=== PATIENT | female | born 1990 | race African-American/Black ===

== ENCOUNTER → 2017-01-12 | Outpatient (CLI) | payer OTHER ==
[2017-01-12 18:08] LABS: PREG INTERNAL NEGATIVE QC NEG CLEAR BACKGROUND; PREG INTERNAL POSITIVE QC POS CONTROL LINE
[2017-01-12 18:14] LABS: PROLACTIN 4.51 ng/mL
[2017-01-12 18:16] LABS: CALCULATED INSULIN SENSITIVITY 0.335; GLUCOSE LOG 1.9085; THYROID STIMULATING HORMONE 0.366 uIu/ml (0.300-4.500)
== END | disposition home or self-care (01) ==
LOC: C.LAB1850 16:08
PROVIDERS: ATTEND Physician Assistant
DX: N92.6 Irregular menstruation, unspecified (principal)

== ENCOUNTER 2017-03-10 00:41 | Emergency (ER) | payer OTHER ==
[~2017-03-10] VITALS: Ht 167.6 cm; Wt 71.8 kg
[2017-03-10 00:46] VITALS: Ht 167.6 cm; Wt 71.8 kg
[2017-03-10] MEDS ORDERED: KETOROLAC TROMETHAMINE 60 MG/2 ML VIAL IM STA (01:18)
--- NOTE | 2017-03-10 01:22 | EMERGENCY ROOM VISIT NOTE ---
History Report prepared by Esdras: Giovani Mcnair Under the Supervision of: Dr. Rachel Max D.O. First contact with patient: 01:01 Chief Complaint: DENTAL PAIN Stated Complaint: SEVERE DENTAL PAIN Nursing Triage Summary: dental pain R lower History of Present Illness The patient is a 26 year old female who presents to the Emergency Room with complaints of right sided upper dental pain that began 2 months ago. She rates her pain a 10/10 in severity. She states that she has an exposed nerve in her mouth with a Dentist appointment on the . However, the patient has not been able to sleep or eat regularly secondary to her pain. She notes that she has lost 10 pounds. She is currently on her second course of Augmentin that was prescribed by Urgent Care and [facility]. She was also given Lortab for the pain, but states that it only helps he sleep occasionally. She denies any current medical problems. She denies any fevers. Source of History: patient Onset: 2 months ago Position: teeth (upper right side) Symptom Intensity: 10/10 Quality: sharp Timing: constant Associated Symptoms: No fevers Note: She is unable to eat or sleep regularly secondary to her pain. She notes that she has lost 10 pounds. Review of Systems See HPI for pertinent positives & negatives. A total of 10 systems reviewed and were otherwise negative. Past Medical & Surgical Medical Problems: (1) No Known Active Medical Problems Family History Patient reports no known family medical history. Social History Smoking Status: Current Every Day Smoker Smokeless Tobacco Use: No Drug Use: none Occupation Status: employed Physical Exam Vital Signs Date Time Temp Pulse Resp B/P (MAP) Pulse Ox O2 Delivery O2 Flow Rate FiO2 03/10/17 02:23 74 18 109/75 98 Room Air 03/10/17 02:23 36.8 74 18 109/75 98 03/10/17 00:46 36.5 66 18 178/95 99 Room Air Physical Exam HEENT: Head - normocephalic and atraumatic Pupils are equal, round, and reactive to light. Extraocular eye muscles are intact, and sclera are anicteric. Ear - TM's clear bilaterally. Nose - moist nasal mucosa without discharge. Mouth - moist buccal mucosa. Oropharynx is nonerythematous and there is no tonsillar exudate or edema noted. Tooth number 4 is fractured without surrounding erythema or edema. Neck: Supple; no cervical lymphadenopathy or submental pain Heart: No murmurs, clicks, or gallops appreciated. Lungs: Clear to auscultation bilaterally with no wheezes, rales, or rhonchi. Abdomen: Soft, completely nontender, nondistended, with good bowel sounds. There are no palpable pulsatile masses or hepatosplenomegaly. There is no guarding, rigidity, or rebound noted. Extremities: No evidence of cyanosis, clubbing, or edema. There are easily palpable peripheral pulses. Skin: warm and dry with good turgor and no rashes. Medical Decision & Procedures Medications Administered Medications (Trade) Dose Ordered Sig/Leandro Route Start Time Stop Time Status Last Admin Dose Admin Ketorolac Tromethamine (Toradol Inj) 60 mg NOW STAT IM 03/10/17 01:18 03/10/17 01:19 DC 03/10/17 01:27 60 MG Oxycodone/ Acetaminophen (Percocet 5/ 325MG Home Pack) 1 homepack UD ONCE PO 03/10/17 02:00 03/10/17 02:01 DC 03/10/17 02:00 1 HOMEPACK Procedure Toradol Inj 60 mg IM Lidocaine HCl 20 ml INFIL Bupivacaine HCl 30 ml INFIL Oxycodone/Acetaminophen 1 homepack PO Please see procedure note dictation by Adalberto Hidalgo PA-C ED Course 0101: Past medical records reviewed. The patient was evaluated in room C1. A complete history and physical exam was performed. 0118: Ordered Toradol Inj 60 mg IM 0145: Ordered Lidocaine HCl 20 ml INFIL, Bupivacaine HCl 30 ml INFIL 0150: At this time, Adalberto Hidalgo PA-C performed the patient's dental block procedure. Please see his note for more information. 0200: Ordered Oxycodone/Acetaminophen 1 homepack PO 0300: Upon reevaluation, the patient was resting. I discussed findings and results with her. She verbalized agreement of the treatment plan. She was discharged home. Medical Decision The patient is a 26 year old female who presents to the ED with dental pain. Differential diagnosis includes dentalgia and dental abscess. The patient has been on 2 consecutive courses of oral Augmentin for a dental abscess. She has had improvement in that situation but is still having severe pain surrounding the tooth. She is scheduled to see a dentist on March 19. We gave her IM analgesia as well as a dental block was performed with good relief. I've given her the name of the oral surgeon that was on-call derrell to do some follow-up as this may be quicker than going to her regular dentist. The patient was encouraged to finish the last couple of doses of Augmentin and follow-up on Sunday. She was given a Percocet home pack to use to help with her pain tonight. Medication Reconcilliation Current Medication List: was personally reviewed by me Blood Pressure Screening Patient's blood pressure: Normal blood pressure Blood pressure disposition: Did not require urgent referral Impression Primary Impression: Pain, dental Scribe Attestation The scribe's documentation has been prepared under my direction and personally reviewed by me in its entirety. I confirm that the note above accurately reflects all work, treatment, procedures, and medical decision making performed by me. Departure Information Dispostion Home / Self-Care Referrals Vinnie Graham M.D. Stein, Barry R., D.M.D. Forms HOME CARE DOCUMENTATION FORM, IMPORTANT VISIT INFORMATION Patient Instructions ED Tooth Pain, My [facility] Additional Instructions Finish antibiotics May continue to use Lortab Percocet - (tonight) 1 tab. every 4 hours for pain
[2017-03-10] MEDS ORDERED: XYLOCAINE 1%/SOD BICARB 20 ML VIAL INFIL ONE (01:45)
[2017-03-10] MEDS ORDERED: BUPIVACAINE 0.5 % 5 MG/1 ML MPF 30ML VIAL INFIL ONE (01:45)
[2017-03-10] MEDS ORDERED: PERCOCET HOME PACK PO ONE (02:00)
[2017-03-10 02:23] VITALS: BP 109/75; PULSE 74; TEMP 36.8; O2SAT 98
--- NOTE | 2017-03-10 06:39 | EMERGENCY ROOM VISIT NOTE ---
ED Visit Note Patient was seen and evaluated at the request of my attending physician, Dr. Max, for a dental block. In short, the patient has dental pain with appears to be originating from the #4 tooth. The medial aspect of this tooth is very carious and is causing pain. Dental Block Consent for operation or procedure: Risks and benefits discussed with patient and consent obtained Anesthesia: 0.5 ml of 0.5% Bupivicaine and 0.5 ml of 1% Buffered Lidocaine The distribution of the inferior alveolar nerve was identified. A 50-50 mix of bupivacaine and lidocaine was injected into that region. A short time later adequate analgesia was obtained. Estimated Blood Loss: minimal Complications: The patient tolerated the procedure well without complications. I refer you back to Dr. Max's dictation for further patient course, plan, and disposition. Vital Signs Date Time Temp Pulse Resp B/P (MAP) Pulse Ox O2 Delivery O2 Flow Rate FiO2 03/10/17 02:23 74 18 109/75 98 Room Air 03/10/17 02:23 36.8 74 18 109/75 98 03/10/17 00:46 36.5 66 18 178/95 99 Room Air Medications Administered Medications (Trade) Dose Ordered Sig/Leandro Route Start Time Stop Time Status Last Admin Dose Admin Ketorolac Tromethamine (Toradol Inj) 60 mg NOW STAT IM 03/10/17 01:18 03/10/17 01:19 DC 03/10/17 01:27 60 MG Oxycodone/ Acetaminophen (Percocet 5/ 325MG Home Pack) 1 homepack UD ONCE PO 03/10/17 02:00 03/10/17 02:01 DC 03/10/17 02:00 1 HOMEPACK Departure Information Impression Primary Impression: Pain, dental Dispostion Home / Self-Care Condition FAIR Referrals Vinnie Graham M.D. (PCP) Raul Coronado D.M.D. Call his office for follow up with Oral Surgery Forms HOME CARE DOCUMENTATION FORM, IMPORTANT VISIT INFORMATION Patient Instructions My [facility], ED Tooth Pain Additional Instructions Finish antibiotics May continue to use Lortab Percocet - (tonight) 1 tab. every 4 hours for pain
== END 2017-03-10 02:24 | disposition home or self-care (01) ==
LOC: C.EDB 00:41 → C.EDC 02:24
DX: K08.89 Other specified disorders of teeth and supporting structures (principal); F17.200 Nicotine dependence, unspecified, uncomplicated